=== PATIENT | female | born 1950 | race Caucasian/White ===

== ENCOUNTER → 2018-02-11 | Outpatient (CLI) | payer OTHER ==
[~2018-02-11] VITALS: Ht 167.6 cm; Wt 98.3 kg
[~2018-02-11] MED LIST: FOLIC ACID1 MG PO; METHOTREXATE 22.5 MG PO; OMEPRAZOLE40 MG PO; PRAVACHOL40 MG PO; PREDNISONE 5 MG5 M1 PO; SYNTHROID150 MCG PO; ZOLOFT50 MG PO
--- NOTE | ~2018-02-11 | HPC ---
[facility] [address] [place] [address] PAIN MANAGEMENT CONSULTATION Name: MIMI HILL Room #: REG [facility]..#: [id number] Admission: 02/11/18 Attend Phys: Chucky Martin DO Discharge: Date of : 52 Report #: [id number] THIS REPORT FOR: //name// CC: Chucky Ruggiero MD [facility] Physician staff DATE OF SERVICE: 02/11/2018 REFERRING PHYSICIAN: Jax Ruggiero MD CHIEF COMPLAINT: Low back pain, left lower extremity pain with paresthesias. HISTORY OF PRESENT ILLNESS: As you know, the patient is a very pleasant 67-year-old female who was initially seen by my partner, Dr. Clinton Martin on 04/24/2017, where she was diagnosed with lumbar radiculopathy secondary to the displacement of lumbar intervertebral disk and spinal stenosis. She was advised of the treatment options available for lumbar radicular symptoms secondary to the findings of her MRI, she chose to undergo epidural injection. She reports good efficacy with the epidural injection lasting until just recently. She reports 80% improvement lasting for nearly 7 months. She returns today in followup visit with recurrent pain, numbness and tingling in the left lower extremity for which she places pain around 1-2/10, pain is exacerbated with standing and activities, improves with sitting. She has returned today requesting to undergo second in series of epidural injections to build on success of previous intervention. She denies injury or trauma that may have led to her pain reoccurrence. ALLERGIES: No known drug allergies. CURRENT MEDICATIONS: Folic acid, levothyroxine, omeprazole, methotrexate, sertraline, and pravastatin. SOCIAL HISTORY: The patient denies tobacco, alcohol, IV or illicit drug use. She is working, not receiving workmen's compensation, unaccompanied today. IMAGING: No new imaging available. PQRS: The patient has osteoarthritis of the low back, bilateral hips, no rheumatoid arthritis. She is placing pain score 1/10. She is not a fall risk, has not had a fall in the last 3 months. She is not on blood thinner. She is treated for hypertension. She is not on chronic opioid, she has a low risk of opioid abuse. She is placing pain impact score 25/70. PHYSICAL EXAMINATION: [facility] [address] [place] [address] PAIN MANAGEMENT CONSULTATION Name: MIMI HILL Room #: REG [facility].#: [id number] Admission: 02/11/18 Attend Phys: Chucky Martin DO Discharge: Date of : 52 Report #: [id number] VITAL SIGNS: Blood pressure 153/85, pulse 75, respiratory rate 16 and unlabored, the patient is 100% on room air, height 5 feet 6 inches tall, weight 216.8 pounds, and BMI calculated 35.0. GENERAL: Well-developed, well-nourished, well-hydrated, exogenously obese 67-year-old female, appearing stated age, placing current pain score 1-2/10. HEENT: Normocephalic, atraumatic. Pupils are equal, round, and reactive to light. EXTREMITIES: Show no clubbing, no cyanosis, and no edema. MUSCULOSKELETAL: Lower extremity strength appears equal and symmetrical 5/5. She is intact to light touch from L1 through S2 dermatomes. Seated straight leg raising negative. Supine straight leg raising mildly positive left. Osiris's test negative. Gait mildly antalgic favoring left lower extremity over right. ASSESSMENT: 1. Symptomatic lumbar radiculopathy. 2. Displacement of lumbar intervertebral disk with radiculopathy. 3. Lumbosacral spondylosis with radiculopathy. 4. Spinal stenosis of lumbar spine. 5. Lumbar degeneration. 6. Chronic intractable pain. PLAN: 1. The patient returns today in followup visit requesting to undergo the next in the series of epidural injections. The patient reports excellent benefit with previous epidural injection providing nearly 80% improvement in overall pain lasting for 7 months. She returns today in followup visit with no inciting injury or trauma with recurrence of pain about a level of 1-2/10. She returns requesting epidural injection, she has been advised risks and benefits of this procedure, states understood and wished to proceed. 2. No medication changes were made at today's visit, the patient will continue current medical therapy as previously prescribed. 3. We will see the patient back in followup visit on an as needed basis for the next in the series of epidural injections. PROCEDURE NOTE DESCRIPTION OF PROCEDURE: L5-S1 left paramedian epidural steroid injection under fluoroscopic guidance. This is the second procedure of the first series that the patient is undergoing. After obtaining written consent, the patient was taken back to the fluoroscopy suite, placed in a prone position with pillow under the abdomen to decrease lumbar lordosis. The skin overlying the lumbosacral area was then prepped and draped in aseptic fashion. The L5-S1 vertebral interspace was then identified by AP fluoroscopy. The skin and subcutaneous tissue overlying the target site [address] [address] PAIN MANAGEMENT CONSULTATION Name: MIMI HILL [facility] [id number] Admission: 02/11/18 Attend Phys: Chucky Martin DO Discharge: Date of : 52 Report #: [id number] of injection was anesthetized with 3 mL 1% lidocaine. A 20-gauge 3-1/2-inch Tuohy needle was then advanced under fluoroscopic guidance towards the epidural space using a left paramedian approach. The epidural space was identified using loss of resistance to air technique. After negative aspiration for heme or cerebrospinal fluid, a total of 1 mL of Omnipaque was injected. A lumbar epidurogram was confirmed using both AP and lateral fluoroscopy. After negative aspiration for heme or cerebrospinal fluid, 5 mL of a solution containing 2 mL 40 mg per mL, 80 mg total triamcinolone, 3 mL lidocaine 1% was injected in increments. Contrast spread was noted posterior epidural space. The needle was then retracted approximately half way and needle tract flushed with 1 mL of 1% lidocaine. Needle was then removed. There were no apparent sensory or motor deficits in the lower extremity following the procedure. A sterile bandage was placed over the injection site. The heart rate, pulse, oximetry and blood pressure were continuously monitored after the procedure. There were no apparent complications. The patient tolerated the procedure well and was carefully escorted to the recovery room in stable condition. There were no apparent complications. After meeting discharge criteria, the patient was then discharged home. <ELECTRONICALLY SIGNED> By: Chucky Martin DO 02/12/18 0817 [id number] Chucky Martin, DO /nt
[2018-02-11 09:20] VITALS: BP 153/85
== END | disposition home or self-care (01) ==
LOC: PAIN 05-22 13:49
DX: M51.16 Intervertebral disc disorders with radiculopathy, lumbar region (principal); M47.27 Other spondylosis with radiculopathy, lumbosacral region; M48.061 Spinal stenosis, lumbar region without neurogenic claudication; G89.29 Other chronic pain; M16.0 Bilateral primary osteoarthritis of hip; I10 Essential (primary) hypertension; Z79.899 Other long term (current) drug therapy; Z98.890 Other specified postprocedural states